=== PATIENT | female | born 1975 | race Caucasian/White ===

== ENCOUNTER 2017-10-19 12:04 | Inpatient (IN) | payer MEDICAID ==
[~2017-10-19] VITALS: Ht 162.6 cm; Wt 74.9 kg
[~2017-10-19 12:04] MED LIST: CITA20TA9 PO
[2017-10-19 12:22] LABS: BASOPHILS % (AUTO) 0.5 % (0.0-2.0); EOSINOPHILS % (AUTO) 0.6 % (1.0-6.0); HEMATOCRIT 42.3 % (36-46); HEMOGLOBIN 14.7 g/dL (12.0-16.0); LYMPHOCYTES # (AUTO) 2.9 K/uL (1.0-4.8); LYMPHOCYTES % (AUTO) 17.3 % (22.0-44.0); MEAN CORPUSCULAR HEMOGLOBIN 30.6 pg (26.0-34.0); MEAN CORPUSCULAR HGB CONC 34.8 G/dL (31.0-37.0); MEAN CORPUSCULAR VOLUME 88 fL (80-100); MONOCYTES # (AUTO) 0.8 K/uL (0.1-1.0); MONOCYTES % (AUTO) 4.9 % (2.0-9.0); NEUTROPHILS # (AUTO) 13.1 K/uL (1.8-7.7); NEUTROPHILS % (AUTO) 76.7 % (40.0-70.0); PLATELET COUNT (AUTO) 389 K/uL (150-450); RED BLOOD CELL COUNT(AUTO) 4.81 MIL/uL (4.00-5.20); RED CELL DISTRIBUTION WIDTH 13.4 % (11.5-14.5)
[2017-10-19 12:36] LABS: ANION GAP 15 mmol/L (8-16); CALCIUM, TOTAL 9.2 mg/dL (8.8-10.5); CARBON DIOXIDE 22 mmol/L (22-29); CHLORIDE 105 mmol/L (98-107); GLOMERULAR FILTR. RATE CALC 54 mL/min (>60); GLUCOSE,RANDOM 116 mg/dL (70-110); POTASSIUM 4.2 mmol/L (3.5-5.1); SODIUM SERUM 142 mmol/L (136-145); UREA NITROGEN, BLOOD 12 mg/dL (7-18)
[2017-10-19 12:42] LABS: ALANINE AMINOTRANSFERASE 21 U/L (12-78); ALBUMIN 4.1 g/dL (3.4-5.0); ALKALINE PHOSPHATASE 92 U/L (46-116); ASPARTATE AMINOTRANSFERASE 22 U/L (15-37); BILIRUBIN,TOTAL 0.8 mg/dL (0.1-1.0); TOTAL PROTEIN, SERUM 8.2 g/dL (6.4-8.2)
[2017-10-19] MEDS ORDERED: LORazepam 2 MG TABLET PO ONE (13:15)
[2017-10-19 17:05] VITALS: BP 111/71
[2017-10-19] MEDS ORDERED: INFLUENZA VIRUS VACCINE QVS 2017-18 (3YR+)/PF 60 MCG/0.5 ML SYRINGE IM ONE (18:00)
[2017-10-19] MEDS: LORazepam 2 MG TABLET PO PRN (19:51)
[2017-10-19] MEDS ORDERED: ClonazePAM 1 MG TABLET PO SCH (21:00)
[2017-10-19] MEDS: CloNIDine HCL 0.1 MG TABLET PO SCH (21:10)
[2017-10-19 21:37] VITALS: BP 116/87
[2017-10-20 01:17] VITALS: BP 111/74
[2017-10-20 08:08] LABS: FREE T4 (FREE THYROXINE) 1.14 ng/dL (0.76-1.46); THYROID STIMULATING HORMONE 1.74 uIU/mL (0.36-3.74)
[2017-10-20 08:18] VITALS: BP 108/87
[2017-10-20] MEDS ORDERED: ALBUTEROL SULFATE HFA 90 MCG/PUFF 8 GM INHALER IH PRN (09:00)
[2017-10-20] MEDS ORDERED: MAGNESIUM HYDROXIDE SUSPENSION 30 ML UDCUP PO PRN (09:00)
[2017-10-20] MEDS ORDERED: LOPERAMIDE HCL 2 MG CAPSULE PO PRN (09:00)
[2017-10-20] MEDS ORDERED: ONDANSETRON HCL 4 MG TABLET PO PRN (09:00)
[2017-10-20] MEDS ORDERED: IBUPROFEN 600 MG TABLET PO PRN (09:00)
[2017-10-20] MEDS ORDERED: MAG HYDROX/AL HYDROX/SIMETH ES 30 ML SUSPENSION UDCUP PO PRN (09:00)
[2017-10-20] MEDS ORDERED: ACETAMINOPHEN 325 MG TABLET PO PRN (09:00)
[2017-10-20] MEDS ORDERED: PETROLATUM,WHITE 71 GM JELLY TP PRN (09:00)
[2017-10-20] MEDS ORDERED: BACITRACIN 28.4 GM OINTMENT TP PRN (09:00)
[2017-10-20] MEDS ORDERED: CloNIDine HCL 0.1 MG TABLET PO PRN (09:00)
[2017-10-20] MEDS ORDERED: BENZOCAINE/MENTHOL LOZENGE MM PRN (09:00)
[2017-10-20] MEDS: LamoTRIgine 100 MG TABLET PO SCH (09:24)
[2017-10-20] MEDS: VENLAFAXINE HCL 75 MG ER CAPSULE PO SCH (09:24)
[2017-10-20] MEDS: BACITRACIN 28.4 GM OINTMENT TP SCH ×2 (09:25→17:00)
[2017-10-20 16:00] VITALS: BP 123/84
[2017-10-20] MEDS ORDERED: CLON-570 PO (17:04)
[2017-10-20] MEDS ORDERED: VENL-67 PO (17:04)
[2017-10-20] MEDS ORDERED: LAMO100 PO (17:04)
[2017-10-20 22:15] VITALS: BP 140/90
[2017-10-20] MEDS: LORazepam 2 MG TABLET PO PRN (22:29)
[2017-10-20] MEDS: CloNIDine HCL 0.1 MG TABLET PO SCH (23:04)
[2017-10-21 03:46] VITALS: BP 115/77
[2017-10-21] MEDS: LORazepam 2 MG TABLET PO PRN ×2 (03:56→12:20)
[2017-10-21 08:20] VITALS: BP 140/88
[2017-10-21 08:46] LABS: EOSINOPHILS % (AUTO) 2.1 % (1.0-6.0); HEMATOCRIT 37.2 % (36-46); HEMOGLOBIN 12.8 g/dL (12.0-16.0); LYMPHOCYTES # (AUTO) 2.4 K/uL (1.0-4.8); LYMPHOCYTES % (AUTO) 29.7 % (22.0-44.0); MEAN CORPUSCULAR HEMOGLOBIN 30.5 pg (26.0-34.0); MEAN CORPUSCULAR HGB CONC 34.4 G/dL (31.0-37.0); MEAN CORPUSCULAR VOLUME 89 fL (80-100); MONOCYTES # (AUTO) 0.6 K/uL (0.1-1.0); MONOCYTES % (AUTO) 7.2 % (2.0-9.0); NEUTROPHILS # (AUTO) 4.8 K/uL (1.8-7.7); PLATELET COUNT (AUTO) 279 K/uL (150-450); RED CELL DISTRIBUTION WIDTH 13.3 % (11.5-14.5)
[2017-10-21] MEDS: BACITRACIN 28.4 GM OINTMENT TP SCH ×2 (10:42→17:16)
[2017-10-21] MEDS: LamoTRIgine 100 MG TABLET PO SCH (10:42)
[2017-10-21] MEDS: VENLAFAXINE HCL 75 MG ER CAPSULE PO SCH (10:42)
[2017-10-21 16:12] VITALS: BP 119/76
[2017-10-21] MEDS: CloNIDine HCL 0.1 MG TABLET PO SCH (20:40)
[2017-10-21] MEDS: ZOLPIDEM TARTRATE 10 MG TABLET PO PRN (21:54)
[2017-10-22 05:26] VITALS: BP 115/78
[2017-10-22 08:36] VITALS: BP 130/78
[2017-10-22] MEDS: BACITRACIN 28.4 GM OINTMENT TP SCH ×2 (08:44→16:40)
[2017-10-22] MEDS: VENLAFAXINE HCL 75 MG ER CAPSULE PO SCH (08:45)
[2017-10-22] MEDS: LamoTRIgine 100 MG TABLET PO SCH (08:45)
[2017-10-22] MEDS: LORazepam 2 MG TABLET PO PRN ×2 (11:09→16:41)
[2017-10-22 16:19] VITALS: BP 132/87
[2017-10-22] MEDS: CloNIDine HCL 0.1 MG TABLET PO SCH (20:27)
[2017-10-22] MEDS: ZOLPIDEM TARTRATE 10 MG TABLET PO PRN (21:38)
[2017-10-23 06:37] VITALS: BP 133/75
[2017-10-23 08:17] VITALS: BP 132/71
[2017-10-23] MEDS: VENLAFAXINE HCL 75 MG ER CAPSULE PO SCH (08:20)
[2017-10-23] MEDS: LamoTRIgine 100 MG TABLET PO SCH (08:20)
[2017-10-23] MEDS: LORazepam 2 MG TABLET PO PRN (08:20)
[2017-10-23] MEDS: BACITRACIN 28.4 GM OINTMENT TP SCH (08:20)
[2017-10-23] MEDS ORDERED: CLON-570 PO (11:00)
== END 2017-10-23 12:45 | disposition home or self-care (01) | DRG 753 ==
LOC: EMS 12:06 → B2S 16:07 → B3A 10-20 21:45
PROVIDERS: ADMIT Psychiatry & Neurology Psychiatry; ATTEND Psychiatry & Neurology Psychiatry
PROC: 3E0234Z Introduction of Serum, Toxoid and Vaccine into Muscle, Percutaneous Approach (ICD-10-PCS; principal; 2017-10-19)
DX: F31.9 Bipolar disorder, unspecified (principal); R45.851 Suicidal ideations; Z91.19 Patient's noncompliance with other medical treatment and regimen; F41.9 Anxiety disorder, unspecified; F12.90 Cannabis use, unspecified, uncomplicated; G47.00 Insomnia, unspecified; F23 Brief psychotic disorder; F60.3 Borderline personality disorder; F43.10 Post-traumatic stress disorder, unspecified; Z88.8 Allergy status to other drugs, medicaments and biological substances; Z91.5 Personal history of self-harm; Z81.8 Family history of other mental and behavioral disorders; Z23 Encounter for immunization
CPT/HCPCS: 82306; 84439; 84443; G0480

== ENCOUNTER 2017-10-20 16:56 | Emergency (ER) | payer SELFPAY ==
[~2017-10-20] VITALS: Ht 162.6 cm; Wt 76.4 kg
[2017-10-20] MEDS ORDERED: LAMO100 PO (17:04)
[2017-10-20] MEDS ORDERED: CLON-570 PO (17:04)
[2017-10-20] MEDS ORDERED: VENL-67 PO (17:04)
[2017-10-20 20:35] VITALS: BP 126/85
== END 2017-10-20 21:35 | disposition home or self-care (01) ==
LOC: EMS 16:57
DX: S09.90XA Unspecified injury of head, initial encounter (principal); W50.0XXA Accidental hit or strike by another person, initial encounter; Y93.89 Activity, other specified; Y92.89 Other specified places as the place of occurrence of the external cause; Y99.8 Other external cause status
CPT/HCPCS: 70450; 99284

== ENCOUNTER 2020-07-20 10:22 | Inpatient (IN) | payer MEDICAID, MEDICARE ==
[~2020-07-20] VITALS: Ht 162.6 cm; Wt 53.4 kg
[~2020-07-20 10:22] MED LIST changes: -CITA20TA9 PO; +CLON0.1T83 PO; +LAMO100 PO; +VENL-67 PO
[2020-07-20] MEDS ORDERED: IBUP-2759 PO (10:37)
[2020-07-20] MEDS ORDERED: DIPH25CA85 PO (10:37)
[2020-07-20 11:19] LABS: EOSINOPHILS % (AUTO) 2.4 % (1.0-6.0); HEMATOCRIT 42.7 % (36-46); HEMOGLOBIN 14.5 g/dL (12.0-16.0); LYMPHOCYTES # (AUTO) 2.1 K/uL (1.0-4.8); LYMPHOCYTES % (AUTO) 19.2 % (22.0-44.0); MEAN CORPUSCULAR VOLUME 91 fL (80-100); MONOCYTES # (AUTO) 0.6 K/uL (0.1-1.0); MONOCYTES % (AUTO) 5.7 % (2.0-9.0); NEUTROPHILS # (AUTO) 7.9 K/uL (1.8-7.7); NEUTROPHILS % (AUTO) 71.7 % (40.0-70.0); PLATELET COUNT (AUTO) 325 K/uL (150-450); RED BLOOD CELL COUNT(AUTO) 4.68 MIL/uL (4.00-5.20); RED CELL DISTRIBUTION WIDTH 14.6 % (11.5-14.5)
[2020-07-20 11:32] LABS: ANION GAP 12 mmol/L (8-16); CALCIUM, TOTAL 9.6 mg/dL (8.8-10.5); CARBON DIOXIDE 26 mmol/L (22-29); CHLORIDE 104 mmol/L (98-107); CREATININE 0.73 mg/dL (0.60-1.30); GLOMERULAR FILTR. RATE CALC > 60 mL/min (>60); GLUCOSE,RANDOM 82 mg/dL (70-110); POTASSIUM 3.7 mmol/L (3.5-5.1); SODIUM SERUM 142 mmol/L (136-145); UREA NITROGEN, BLOOD 14 mg/dL (7-18)
[2020-07-20 11:32] LABS: AMPHET/METH SCREEN,URINE NEGATIVE (NEGATIVE); BARBITURATE SCREEN, URINE NEGATIVE (NEGATIVE); BENZODIAZEPINES SCREEN,URINE NEGATIVE (NEGATIVE); CANNABINOID SCREEN,URINE POSITIVE (NEGATIVE); COCAINE SCREEN,URINE NEGATIVE (NEGATIVE); METHADONE SCREEN, URINE NEGATIVE (NEGATIVE); OPIATE SCREEN,URINE NEGATIVE (NEGATIVE); PHENCYCLIDINE SCREEN,URINE NEGATIVE (NEGATIVE)
[2020-07-20 11:42] LABS: ALANINE AMINOTRANSFERASE 13 U/L (12-78); ALBUMIN 3.9 g/dL (3.4-5.0); ALKALINE PHOSPHATASE 74 U/L (46-116); ASPARTATE AMINOTRANSFERASE 27 U/L (15-37); BILIRUBIN,TOTAL 0.7 mg/dL (0.1-1.0); TOTAL PROTEIN, SERUM 7.8 g/dL (6.4-8.2)
[2020-07-20] MEDS ORDERED: LORazepam 2 MG TABLET PO ONE (12:00)
[2020-07-20] MEDS ORDERED: ZOLPIDEM TARTRATE 10 MG TABLET PO PRN (13:30)
[2020-07-20 14:10] LABS: COVID AG,FIA SOURCE NASOPHARYNGEAL
[2020-07-20] MEDS: LORazepam 2 MG TABLET PO PRN (16:45)
[2020-07-20] MEDS: OLANZapine 5 MG RAPDIS TABLET PO PRN (16:45)
[2020-07-20 17:58] VITALS: BP 144/75
[2020-07-21] MEDS ORDERED: MAG HYDROX/AL HYDROX/SIMETH ES 30 ML SUSPENSION UDCUP PO PRN (07:00)
[2020-07-21] MEDS ORDERED: MAGNESIUM HYDROXIDE SUSPENSION 30 ML UDCUP PO PRN (07:00)
[2020-07-21] MEDS ORDERED: LOPERAMIDE HCL 2 MG CAPSULE PO PRN (07:00)
[2020-07-21] MEDS ORDERED: GuaiFENesin/D-METHORPHAN [SUGAR-FREE] 200-20MG/10 ML SYRUP UDCUP PO PRN (07:00)
[2020-07-21] MEDS ORDERED: IBUPROFEN 400 MG TABLET PO PRN (07:00)
[2020-07-21] MEDS ORDERED: PETROLATUM,WHITE 28 GM JELLY TP PRN (07:00)
[2020-07-21] MEDS ORDERED: DOCUSATE SODIUM 100 MG CAPSULE PO PRN (07:00)
[2020-07-21] MEDS ORDERED: CloNIDine HCL 0.1 MG TABLET PO PRN (07:00)
[2020-07-21] MEDS ORDERED: ACETAMINOPHEN 325 MG TABLET PO PRN (07:00)
[2020-07-21] MEDS ORDERED: NICOTINE 14 MG/24 HOUR PATCH TD PRN (07:00)
[2020-07-21] MEDS ORDERED: ALBUTEROL SULFATE HFA 90 MCG/PUFF 8 GM INHALER IH PRN (07:00)
[2020-07-21] MEDS ORDERED: ONDANSETRON HCL 4 MG TABLET PO PRN (07:00)
[2020-07-21 08:00] VITALS: BP 115/74
[2020-07-21] MEDS: LORazepam 2 MG TABLET PO PRN ×2 (09:06→14:50)
[2020-07-21] MEDS: OLANZapine 5 MG RAPDIS TABLET PO PRN ×2 (09:06→14:50)
[2020-07-21] MEDS: ARIPiprazole 10 MG TABLET PO SCH (11:47)
[2020-07-21 16:29] VITALS: BP 121/77
[2020-07-21] MEDS: GABAPENTIN 300 MG CAPSULE PO SCH (20:26)
[2020-07-22] MEDS: LORazepam 2 MG TABLET PO PRN ×4 (06:08→15:21)
[2020-07-22 08:07] VITALS: BP 130/95
[2020-07-22] MEDS: ARIPiprazole 10 MG TABLET PO SCH (09:18)
[2020-07-22] MEDS: OLANZapine 5 MG RAPDIS TABLET PO PRN ×2 (09:18→10:08)
[2020-07-22 17:00] VITALS: BP 122/83
[2020-07-22] MEDS: GABAPENTIN 300 MG CAPSULE PO SCH (20:08)
[2020-07-23 08:00] VITALS: BP 126/91
[2020-07-23] MEDS: ARIPiprazole 10 MG TABLET PO SCH (08:11)
[2020-07-23] MEDS: LORazepam 2 MG TABLET PO PRN (08:11)
[2020-07-23] MEDS ORDERED: ARIP10TA8 PO (15:47)
== END 2020-07-23 17:00 | disposition home or self-care (01) | DRG 753 ==
LOC: EMS 10:22 → 3EC 13:17
DX: F31.64 Bipolar disorder, current episode mixed, severe, with psychotic features (principal); F60.3 Borderline personality disorder; D72.829 Elevated white blood cell count, unspecified; F12.90 Cannabis use, unspecified, uncomplicated; F41.9 Anxiety disorder, unspecified; Z79.899 Other long term (current) drug therapy; Z87.891 Personal history of nicotine dependence; Z88.8 Allergy status to other drugs, medicaments and biological substances; M54.2 Cervicalgia; Z03.818 Encounter for observation for suspected exposure to other biological agents ruled out
CPT/HCPCS: 72040; 87426; G0480

== ENCOUNTER 2020-12-19 14:53 | Inpatient (IN) | payer MEDICAID, OTHER ==
[~2020-12-19] VITALS: Ht 160 cm; Wt 50.9 kg
[~2020-12-19 14:53] MED LIST changes: +ARIP10TA8 PO; -CLON0.1T83 PO; -LAMO100 PO; -VENL-67 PO
[2020-12-19 17:26] LABS: BASOPHILS % (AUTO) 0.8 % (0.0-2.0); EOSINOPHILS % (AUTO) 1.8 % (1.0-6.0); HEMATOCRIT 41.2 % (36-46); HEMOGLOBIN 13.7 g/dL (12.0-16.0); LYMPHOCYTES % (AUTO) 14.3 % (22.0-44.0); MEAN CORPUSCULAR HEMOGLOBIN 30.4 pg (26.0-34.0); MEAN CORPUSCULAR HGB CONC 33.1 G/dL (31.0-37.0); MEAN CORPUSCULAR VOLUME 92 fL (80-100); MONOCYTES # (AUTO) 0.7 K/uL (0.1-1.0); NEUTROPHILS # (AUTO) 11.1 K/uL (1.8-7.7); NEUTROPHILS % (AUTO) 78.1 % (40.0-70.0); PLATELET COUNT (AUTO) 317 K/uL (150-450); RED BLOOD CELL COUNT(AUTO) 4.48 MIL/uL (4.00-5.20); RED CELL DISTRIBUTION WIDTH 13.6 % (11.5-14.5)
[2020-12-19 17:36] LABS: ANION GAP 13 mmol/L (8-16); CALCIUM, TOTAL 9.6 mg/dL (8.8-10.5); CARBON DIOXIDE 27 mmol/L (22-29); CHLORIDE 101 mmol/L (98-107); CREATININE 0.88 mg/dL (0.60-1.30); GLOMERULAR FILTR. RATE CALC > 60 mL/min (>60); GLUCOSE,RANDOM 96 mg/dL (70-110); POTASSIUM 3.6 mmol/L (3.5-5.1); SODIUM SERUM 141 mmol/L (136-145); UREA NITROGEN, BLOOD 18 mg/dL (7-18)
[2020-12-19 17:48] LABS: ALANINE AMINOTRANSFERASE 22 U/L (12-78); ALBUMIN 3.8 g/dL (3.4-5.0); ALKALINE PHOSPHATASE 77 U/L (46-116); ASPARTATE AMINOTRANSFERASE 15 U/L (15-37); BILIRUBIN,TOTAL 0.5 mg/dL (0.1-1.0); HCG,QUANTITATIVE < 1 mIU/mL (0-6); TOTAL PROTEIN, SERUM 7.5 g/dL (6.4-8.2)
[2020-12-19 20:15] LABS: COVID AG,FIA SOURCE NASOPHARYNGEAL
[2020-12-19] MEDS ORDERED: ACETAMINOPHEN 325 MG TABLET PO PRN (20:15)
[2020-12-19 20:36] LABS: CHOL/HDL RATIO 4.1 (3.9-5.7); CHOLESTEROL 236 mg/dL (131-200); FREE T4 (FREE THYROXINE) 1.26 ng/dL (0.76-1.46); HDL CHOLESTEROL 57 mg/dL (40-60); LDL CHOL (CALC.) 162 mg/dL (0-130); THYROID STIMULATING HORMONE 0.72 uIU/mL (0.36-3.74); TRIGLYCERIDES 86 mg/dL (15-150)
[2020-12-20] MEDS ORDERED: ZOLPIDEM TARTRATE 10 MG TABLET PO PRN (00:15)
[2020-12-20] MEDS ORDERED: OLANZapine 5 MG RAPDIS TABLET PO PRN (00:15)
[2020-12-20] MEDS: LORazepam 2 MG TABLET PO PRN ×2 (00:29→18:14)
[2020-12-20 16:03] VITALS: BP 113/67
[2020-12-20] MEDS: QUEtiapine FUMARATE 200 MG TABLET PO SCH (21:19)
[2020-12-21 06:39] VITALS: BP 116/72
[2020-12-21 08:13] VITALS: BP 116/73
[2020-12-21] MEDS ORDERED: CloNIDine HCL 0.1 MG TABLET PO PRN (11:45)
[2020-12-21] MEDS ORDERED: MAGNESIUM HYDROXIDE SUSPENSION 30 ML UDCUP PO PRN (11:45)
[2020-12-21] MEDS ORDERED: DOCUSATE SODIUM 100 MG CAPSULE PO PRN (11:45)
[2020-12-21] MEDS ORDERED: PETROLATUM,WHITE 28 GM JELLY TP PRN (11:45)
[2020-12-21] MEDS ORDERED: LOPERAMIDE HCL 2 MG CAPSULE PO PRN (11:45)
[2020-12-21] MEDS ORDERED: ACETAMINOPHEN 325 MG TABLET PO PRN (11:45)
[2020-12-21] MEDS ORDERED: ONDANSETRON HCL 4 MG TABLET PO PRN (11:45)
[2020-12-21] MEDS ORDERED: MAG HYDROX/AL HYDROX/SIMETH ES 30 ML SUSPENSION UDCUP PO PRN (11:45)
[2020-12-21] MEDS ORDERED: GuaiFENesin/D-METHORPHAN [SUGAR-FREE] 200-20MG/10 ML SYRUP UDCUP PO PRN (11:45)
[2020-12-21] MEDS ORDERED: ALBUTEROL SULFATE HFA 90 MCG/PUFF 8 GM INHALER IH PRN (11:45)
[2020-12-21] MEDS ORDERED: NICOTINE 14 MG/24 HOUR PATCH TD PRN (11:45)
[2020-12-21] MEDS ORDERED: IBUPROFEN 400 MG TABLET PO PRN (11:45)
[2020-12-21] MEDS: LORazepam 2 MG TABLET PO PRN (12:10)
[2020-12-21 16:12] VITALS: BP 116/77
[2020-12-21] MEDS: QUEtiapine FUMARATE 200 MG TABLET PO SCH (20:45)
[2020-12-22 01:25] VITALS: BP 114/74
[2020-12-22 08:06] VITALS: BP 118/70
[2020-12-22] MEDS: LORazepam 2 MG TABLET PO PRN ×2 (09:06→13:36)
[2020-12-22] MEDS: QUEtiapine FUMARATE 200 MG TABLET PO SCH (20:07)
[2020-12-23 00:13] VITALS: BP 112/65
[2020-12-23 08:09] VITALS: BP 106/70
[2020-12-23] MEDS: LORazepam 2 MG TABLET PO PRN (09:23)
[2020-12-23] MEDS ORDERED: QUET200T PO (11:22)
== END 2020-12-23 11:59 | disposition home or self-care (01) | DRG 753 ==
LOC: EMS 14:53 → UNDOADMIN 20:03 → B3A 20:03
DX: F31.5 Bipolar disorder, current episode depressed, severe, with psychotic features (principal); R45.851 Suicidal ideations; F12.90 Cannabis use, unspecified, uncomplicated; F17.210 Nicotine dependence, cigarettes, uncomplicated; F41.9 Anxiety disorder, unspecified; D72.829 Elevated white blood cell count, unspecified; E78.5 Hyperlipidemia, unspecified; F60.3 Borderline personality disorder; Z20.822 Contact with and (suspected) exposure to COVID-19; Z88.8 Allergy status to other drugs, medicaments and biological substances
CPT/HCPCS: 84439; 84443; 87426; 99285; G0480